=== PATIENT | female | born 2000 ===

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

== ENCOUNTER 2021-02-08 02:11 | Outpatient (CLI) | payer OTHER ==
[~2021-02-08 02:11] MED LIST: PRENATAL FORMU1 EAC1 PO
== END 2021-02-08 10:35 | disposition home or self-care (01) ==
LOC: OBS/DEL 02:11 → LDR 03:53 → OBS/DEL 04:39
PROVIDERS: ATTEND Obstetrics & Gynecology
DX: O47.1 False labor at or after 37 completed weeks of gestation (principal); Z3A.39 39 weeks gestation of pregnancy

== ENCOUNTER 2021-03-02 16:40 | Inpatient (IN) | payer OTHER ==
[~2021-03-02] VITALS: Ht 154.9 cm; Wt 68.0 kg
== END 2021-03-04 11:56 | disposition home or self-care (01) | DRG 805 ==
LOC: OB/GYN 16:40 → LDR 16:40 → OB/GYN 21:00
PROVIDERS: ADMIT Obstetrics & Gynecology; ATTEND Obstetrics & Gynecology
PROC: 10E0XZZ Delivery of Products of Conception, External Approach (ICD-10-PCS; principal; 2021-03-02)
PROC: 10907ZC Drainage of Amniotic Fluid, Therapeutic from Products of Conception, Via Natural or Artificial Opening (ICD-10-PCS; 2021-03-02)
PROC: 4A1HXFZ Monitoring of Products of Conception, Cardiac Rhythm, External Approach (ICD-10-PCS; 2021-03-02)
DX: O98.52 Other viral diseases complicating childbirth (principal); U07.1 COVID-19; Z37.0 Single live birth; Z3A.38 38 weeks gestation of pregnancy

== ENCOUNTER 2021-04-02 12:21 | Inpatient (IN) | payer OTHER ==
[~2021-04-02] VITALS: Ht 154.9 cm; Wt 59.0 kg
== END 2021-04-04 11:27 | disposition home or self-care (01) | DRG 776 ==
LOC: ER 12:21 → MEDJ 14:43 → OB/GYN 04-03 13:50
PROVIDERS: ADMIT Obstetrics & Gynecology; ATTEND Obstetrics & Gynecology
PROC: 4A12X4Z Monitoring of Cardiac Electrical Activity, External Approach (ICD-10-PCS; principal; 2021-04-02)
DX: O91.22 Nonpurulent mastitis associated with the puerperium (principal)